=== PATIENT | male | born 1995 | race Hispanic/Latino ===

== ENCOUNTER 2021-10-07 16:11 | Emergency (ER) | payer SELFPAY ==
[2021-10-07] MEDS ORDERED: Bacitracin 1 PK ONE (18:39)
== END 2021-10-07 18:54 | disposition home or self-care (01) ==
LOC: ERS 16:11
DX: S61.216A Laceration without foreign body of right little finger without damage to nail, initial encounter (principal); W26.9XXA Contact with unspecified sharp object(s), initial encounter
CPT/HCPCS: 12002